=== PATIENT | female | born 1945 | race Caucasian/White ===

== ENCOUNTER 2018-12-31 07:01 | Inpatient (IN) ==
[2018-12-26 14:03] LABS: Appearance,Urine CLEAR; Bilirubin,Urine NEG (NEG); Color,Urine YELLOW; Glucose,Urine (UA) NEGATIVE (NEG); Leukocyte Esterase,Urine NEG /uL (NEG); Protein,Urine NEG (NEG); Specific Gravity,Urine 1.005 (1.000-1.035); Urine Blood NEG mg/dL (<0.03); Urobilinogen,Urine NEG (NEG)
[2018-12-26 16:29] LABS: Blood Urea Nitrogen 14 mg/dl (8-23)
[2018-12-26 16:58] LABS: Basophils # (Auto) 0 K/mcL (0.0-0.3); Basophils % (Auto) 0.5 % (0.0-2.0); Eosinophils # (Auto) 0.2 K/mcL (0.0-0.7); Eosinophils % (Auto) 2.1 % (0.0-7.0); Granulocytes % (Auto) 70.4 % (38.0-78.0); Lymphocytes # (Auto) 1.5 K/mcL (1.5-4.8); Lymphocytes % (Auto) 18.8 % (15.5-49.0); Mean Cell Volume 91.1 fL (80.0-100.0); Mean Corpuscular HGB Conc 32.9 g/dL (31.0-36.0); Monocytes # (Auto) 0.7 K/mcL (0.1-0.9); Monocytes % (Auto) 8.2 % (1.0-12.0); Platelet Count 221 K/mcL (140-440); RBC 5.22 M/mcL (4.00-5.20); Red Cell Distribution Width 14.2 % (11.5-14.5)
[~2018-12-31 07:01] MED LIST: 0.9 % SODIUM CHLORIDE 9 ML, KETOROLAC 30 MG, ROPIVACAINE HCL/PF 49.5 ML, EPINEPHrine 0.... IJ SCH; CELECOXIB 200 MG CAPSULE PO SCH; PREGABALIN 75 MG CAPSULE PO SCH; ceFAZolin 2 GM in DEXTROSE 5% IN WATER 50 ML IV SCH
[2018-12-31] MEDS ORDERED: ROPIVACAINE HCL/PF 20 ML VIAL IJ ONE (09:30)
[2018-12-31] MEDS ORDERED: PHENYLEPHRINE 10 MG/ML VIAL IV ONE (09:30)
[2018-12-31] MEDS ORDERED: KETOROLAC 15 MG/ML VIAL IV ONE (09:30)
[2018-12-31] MEDS ORDERED: DEXAMETHASONE 10 MG/ML VIAL IV ONE (09:30)
[2018-12-31] MEDS ORDERED: MIDAZOLAM 5 MG/5 ML VIAL IV ONE (09:30)
[2018-12-31] MEDS ORDERED: LIDOCAINE HCL/PF 100 MG/5 ML SYRINGE IV ONE (09:30)
[2018-12-31] MEDS ORDERED: PROPOFOL 200 MG/20 ML VIAL IV ONE (09:30)
[2018-12-31] MEDS ORDERED: ONDANSETRON 4 MG/2 ML VIAL IV ONE (09:30)
[2018-12-31] MEDS ORDERED: ePHEDrine 50 MG/ML AMPUL IV ONE (09:30)
[2018-12-31] MEDS ORDERED: TRANEXAMIC ACID 1,000 MG/10 ML VIAL IV ONE ×2 (09:30→10:56)
[2018-12-31] MEDS ORDERED: GENTAMICIN SULFATE 800 MG/20 ML VIAL IR ONE (09:51)
[2018-12-31] MEDS ORDERED: FAMOTIDINE 20 MG TABLET PO PRN (10:55)
--- NOTE | 2018-12-31 10:55 | Brief Operative Note ---
Date of procedure: 12/31/18 Pre-op diagnosis: right knee osteoarthritis Post-op diagnosis: same Procedure: right tka Grafts/Implants: Yes Anesthesia: spinal Complications: none Surgeon: Gene Thorpe Band Maker: Louise Hyatt Estimated blood loss (cc): 150 Tourniquet Time (Minutes): 63 Specimens Removed/Pathology: none sent Condition: stable Disposition: PACU
[2018-12-31] MEDS ORDERED: FLEETS ADULT ENEMA PR PRN (10:56)
[2018-12-31] MEDS ORDERED: ONDANSETRON 4 MG/2 ML VIAL IV PRN ×2 (10:56→10:58)
[2018-12-31] MEDS ORDERED: POLYETHYLENE GLYCOL 3350 17 GM PACKET PO PRN (10:56)
[2018-12-31] MEDS ORDERED: ONDANSETRON 4 MG ODT TABLET SL PRN (10:56)
[2018-12-31] MEDS ORDERED: BISACODYL 10 MG SUPP.RECT PR PRN (10:56)
[2018-12-31] MEDS ORDERED: MAGNESIUM HYDROXIDE 30 ML ORAL.SUSP PO PRN (10:56)
[2018-12-31] MEDS ORDERED: BENZOCAINE/MENTHOL 1 LOZENGE PO PRN (10:56)
[2018-12-31] MEDS ORDERED: ACETAMINOPHEN 1,000 MG/100 ML BOTTLE IV ONE ×2 (10:58→12:00)
[2018-12-31] MEDS ORDERED: LACTATED RINGERS 250 ML IV PRN (10:58)
[2018-12-31] MEDS ORDERED: PROMETHAZINE 25 MG/ML VIAL IV PRN (10:58)
[2018-12-31] MEDS ORDERED: MEPERIDINE 25 MG/ML SYRINGE IV PRN (10:58)
[2018-12-31] MEDS ORDERED: IPRATROPIUM/ALBUTEROL 3 ML AMPUL.NEB NEB PRN (10:58)
[2018-12-31] MEDS ORDERED: fentaNYL 100 MCG/2 ML VIAL IV PRN (10:58)
[2018-12-31] MEDS ORDERED: diphenhydrAMINE 50 MG/ML VIAL IV PRN (10:58)
[2018-12-31] MEDS ORDERED: NALOXONE HCL 0.4 MG/ML VIAL IV PRN (10:58)
[2018-12-31] MEDS ORDERED: FLUMAZENIL 0.1 MG/ML ML IV PRN (10:58)
[2018-12-31] MEDS ORDERED: LACTATED RINGERS 1,000 ML IV SCH (11:00)
--- NOTE | 2018-12-31 11:59 | XRay Report ---
CLINICAL INFORMATION: Postsurgical follow-up TECHNIQUE: AP and crosstable lateral right knee COMPARISON: None. FINDINGS: Status post right total knee arthroplasty. Anatomic alignment demonstrated. There is postsurgical soft tissue and intra-articular gas IMPRESSION: Status post right total knee arthroplasty Interpreted and Authenticated by: Gene Tanner 12/31/18
[2018-12-31] MEDS: KETOROLAC 15 MG/ML VIAL IV SCH ×2 (12:22→17:14)
[2018-12-31] MEDS: 0.9 % SODIUM CHLORIDE 1,000 ML IV SCH ×2 (12:26→23:13)
--- NOTE | 2018-12-31 12:39 | Operative Note ---
DATE OF OPERATION: 12/31/2018 PREOPERATIVE DIAGNOSIS: Degenerative joint disease, right knee. POSTOPERATIVE DIAGNOSIS: Degenerative joint disease, right knee. PROCEDURE PERFORMED: Right total knee arthroplasty. SURGEON: Moises Thorpe M.D. EXTENSION CLERK SURGEON: Louise Hyatt PA-C. ANESTHESIA: Spinal with LMA assist. ESTIMATED BLOOD LOSS: 150 mL. COMPLICATIONS: None noted. SPECIMENS REMOVED: None. DRAINS: None. TOURNIQUET TIME: 64 minutes at 300 mmHg. IMPLANTS: DePuy Attune femoral posterior stabilized size 6, right, narrow; DePuy Attune tibial insert fixed bearing posterior stabilized size 6, 5 mm AOX; DePuy Attune tibial base fixed bearing size 5, cemented; DePuy Attune patella medialized dome 41 mm cemented AOX. INDICATIONS: The patient has had a long-standing history of worsening pain in the knee that has failed conservative treatment. Radiographs have confirmed advanced degenerative joint disease. After a long discussion about treatment options, the patient elected to proceed with a knee arthroplasty. The risks and benefits were discussed with the patient in detail including, but not limited to, the risks of anesthesia, problems with the heart or lungs related to anesthesia, infection, compromise or injury to the nerves and blood vessels, deep venous thrombosis, pulmonary embolism, pneumonia, continued pain after surgery, worsening pain or symptoms after surgery, swelling, loss of motion, instability, leg length discrepancy, and need for repeat surgery. DESCRIPTION OF PROCEDURE: The patient was seen in the pre-anesthesia waiting room where all questions were answered and the correct side and site were identified and marked. The patient was transferred to the operating room and administered the anesthetic and given pre-operative antibiotics. A time-out was then called. The extremity was prepped and draped, exsanguinated, and the tourniquet was inflated to 300 mmHg. A midline skin incision was then made with a standard medial parapatellar arthrotomy. Debridement of the menisci, ACL, and PCL was performed followed by balancing releases in the medial lateral plane. We then established intramedullary access to both the femur and tibia in a standard fashion. The femoral guide axel was initially placed with the distal femoral guide, pinned into place, and the distal femoral cut was performed and checked with a flat plate. We then turned our attention to the tibia. The intramedullary guide was placed with the proximal tibial cutting block. The block was appropriately positioned off the affected side, varus and valgus was checked with the extra-medullary guide, and the block was pinned into place. The proximal tibial cut was performed and the tibia was prepared for the tibial implant with appropriate rotation. The tibia, femur, and posterior compartment were debrided of osteophytes, loose bodies, and meniscal fragments We then used the gap balancing technique to balance extension with the first two cuts and good balancing was obtained with a 10 millimeter gap block. We turned our attention back to the femur and used the referencing block and implant to size appropriately. Using the gap balancing technique for the flexion space we set our rotation of the femur off the tibial cut. Anesthesia gave the patient 1 gram of Tranexamic Acid via an intravenous route. We placed the 4 in 1 cutting block and made anterior, posterior, and chamfer cuts. Box plasty cuts were then made in a standard fashion for the posterior stabilized prosthesis. We then completed osteophyte release and posterior capsule release from the posterior compartment. Trials were placed and we chose the polyethylene insert thickness that provided the best stability in all planes. With the trials in place, we did a measured resection for a resurfacing patella. We sized the patella and placed the patella trial and performed a lateral facetectomy with the saw and rongeur. Good tracking was obtained. We removed all trials, irrigated and dried all cut surfaces. We cemented the components into place including tibia, femur and patella. We placed a trial liner and held the knee in full extension with the patella compressed while the cement cured. We then removed all excess cement and placed the final polyethylene tibiofemoral component. Irrigation with 3 liters of antibiotic saline was then performed using jet-lavage. We let the tourniquet down and coagulated bleeding vessels. We injected a 100 cubic centimeter volume including Ropivacaine 49.25 cubic centimeters at 5 milligrams per cubic centimeter, Ketorolac 30 milligrams, and Epinephrine 0.5 milligrams into 100 cubic centimeters volume of normal saline. We placed closed the retinaculum with #2 Stratafix and 0 Vicryl. We closed the subcutaneous tissue and skin in layers out to Dermabond on the skin. A sterile pressure dressing was applied. All needle and sponge counts were correct. The patient was transferred to the recovery room in stable condition. STEPHEN:aleksandra Job ID: [id number] Doc ID: [id number] Moises Thorpe MD
[2018-12-31] MEDS: HYDROcodone/APAP 10/325MG TABLET PO PRN ×4 (14:00→22:49)
[2018-12-31] MEDS: 0.9 % SODIUM CHLORIDE 10 ML SYRINGE IV SCH ×2 (14:00→22:51)
[2018-12-31] MEDS: METHOCARBAMOL 750 MG TABLET PO PRN ×2 (15:43→21:43)
[2018-12-31] MEDS: ceFAZolin 1 GM VIAL IV SCH (17:14)
[2018-12-31] MEDS: ASPIRIN 325 MG ENTERIC COATED TABLET PO SCH (21:40)
[2018-12-31] MEDS: DOCUSATE SODIUM 100 MG CAPSULE PO SCH (21:40)
[2018-12-31] MEDS: SENNOSIDES 1 TABLET PO SCH (21:40)
[2019-01-01] MEDS: KETOROLAC 15 MG/ML VIAL IV SCH ×5 (00:22→23:32)
[2019-01-01] MEDS: ceFAZolin 1 GM VIAL IV SCH (00:22)
[2019-01-01] MEDS: HYDROcodone/APAP 10/325MG TABLET PO PRN ×3 (02:29→20:44)
[2019-01-01] MEDS: METHOCARBAMOL 750 MG TABLET PO PRN ×2 (03:24→10:09)
[2019-01-01] MEDS: 0.9 % SODIUM CHLORIDE 10 ML SYRINGE IV SCH ×3 (05:26→22:32)
--- NOTE | 2019-01-01 06:58 | Orthopedic Progress Note ---
Subjective Patient information: Note initiated : 01/01/19 at 6:56 am Service Date, if different from initiated Date: [] Patient: Nanette Botello 73 y/o F admitted on 12/31/18 for Right Total Knee Arthroplasty. Chief Complaint: [] Interval history: doing well. painful Objective Vital signs: Vital Signs Temp Pulse Pulse Resp BP Pulse Ox 01/01/19 03:26 98.0 F 72 16 127/69 94 01/01/19 00:46 98 F 83 12 112/58 94 12/31/18 20:00 97.7 F 93 H 18 117/59 94 12/31/18 13:43 86 139/76 98 12/31/18 13:13 85 125/64 97 12/31/18 12:58 83 122/65 97 12/31/18 12:43 86 118/65 94 12/31/18 12:28 83 117/67 95 12/31/18 12:13 85 120/69 95 12/31/18 12:00 82 16 99 12/31/18 11:55 97.1 F 82 15 120/55 99 12/31/18 11:40 97.2 F 86 19 96/55 98 12/31/18 11:35 97.2 F 84 17 114/54 95 12/31/18 11:30 91 H 17 121/48 100 12/31/18 11:25 87 90 15 123/47 98 12/31/18 11:20 97.4 F 90 11 L 118/53 98 12/31/18 07:01 98.1 F 80 16 138/86 96 Intake and Output 12/31/18 01/01/19 01/01/19 21:59 05:59 13:59 Intake Total 1600 1800 Output Total 1101 350 Balance 499 1450 Intake: IV 1000 Oral 1600 800 Output: Void Amount 1100 350 # of times incontinent of urine 1 Other: Urine Appearance Clear Clear Urine Color Light Whit Light Whit Urine Odor Normal Weight 244 lb 8 oz Intake & Output: Intake & Output 12/31/18 01/01/19 01/01/19 21:59 05:59 13:59 Intake Total 1600 1800 Output Total 1101 350 Balance 499 1450 Weight 244 lb 8 oz Intake: IV 1000 Oral 1600 800 Output: Void Amount 1100 350 # of times incontinent of urine 1 Other: Urine Appearance Clear Clear Urine Color Light Whit Light Whit Urine Odor Normal Incision: Yes healing Incision clean and dry: Yes Dressing: Yes clean, Yes dry, Yes intact Weight bearing status: full Neurological exam IM: Yes abnormal gait, Yes alert, Yes oriented X3, Yes motor sensory intact, Yes neurovascular intact Extremities exam IM: No calf tenderness, Yes Foot pink and warm, Yes neurovascular intact - Labs CBC & BMP: 01/01/19 04:34 12/26/18 13:00 Labs: Orthopedic Labs 12/26/18 13:00 PT 13.0 INR 1.0 01/01/19 12/26/18 04:34 13:00 Hgb 13.4 15.7 H Hct 40.2 47.6 Assessment and Plan (1) Knee osteoarthritis pod 1 s/p tka wbat pain control dvt prophylaxis d/c planning Status: Acute
--- NOTE | 2019-01-01 06:58 | Discharge Summary ---
Ortho Discharge - TKA - Patient Instructions Diet: Regular Diet Activity: activity as tolerated, ambulate with assistive device, weight bearing as tolerated Total Knee Protocol: For Total Knee: Start ROM AMANDA with stationary bike or rocking chair. Work on gaining full extension of knee. Posterior dislocation precautions provided. Hip abductor strengthening and gait training instructions provided. Apply Cryocuff as instructed. Dressing Care: May shower in 2 days - Problem Maintenance (1) Knee osteoarthritis Status: Acute - Follow Up Plan Follow Up Appointments: Louise Hyatt PA-C [Physician Vice Principal] - 01/15/19 9:40 am Disposition: Home, Self-Care Prognosis: Good Rehab Potential: Good I certify that the patient requires SNF services: No Overall status at discharge: patient is progressing back to baseline
[2019-01-01] MEDS: LEVOTHYROXINE 100 MCG TABLET PO SCH (07:14)
[2019-01-01] MEDS: LIOTHYRONINE 5 MCG TABLET PO SCH (08:11)
[2019-01-01] MEDS: ASPIRIN 325 MG ENTERIC COATED TABLET PO SCH ×2 (08:11→20:43)
[2019-01-01] MEDS: DOCUSATE SODIUM 100 MG CAPSULE PO SCH ×2 (08:11→20:43)
[2019-01-01] MEDS: SELENIUM 100 MCG PO SCH (08:12)
[2019-01-01] MEDS: METHYLSULFONYLMETHANE PO SCH (08:12)
[2019-01-01] MEDS: 0.9 % SODIUM CHLORIDE 1,000 ML IV SCH ×2 (15:53→23:32)
[2019-01-01] MEDS: METHOCARBAMOL 1,000 MG/10 ML VIAL IV PRN ×2 (15:53→22:31)
[2019-01-01] MEDS: SENNOSIDES 1 TABLET PO SCH (20:43)
[2019-01-02] MEDS: HYDROcodone/APAP 10/325MG TABLET PO PRN ×2 (02:57→07:53)
[2019-01-02] MEDS: METHOCARBAMOL 1,000 MG/10 ML VIAL IV PRN (04:47)
[2019-01-02] MEDS: KETOROLAC 15 MG/ML VIAL IV SCH (05:34)
[2019-01-02] MEDS: 0.9 % SODIUM CHLORIDE 10 ML SYRINGE IV SCH (05:34)
--- NOTE | 2019-01-02 07:11 | Orthopedic Progress Note ---
Orthopedics - Auxillary Note - Subjective Patient Information: Note initiated : 01/02/19 at 7:10 am Service Date, if different from initiated Date: [] Patient: Nanette Botello 73 y/o F admitted on 12/31/18 for Right Total Knee Arthroplasty. Chief Complaint: Mild knee pain bandages c/d/i nvi-distal Vital Signs Temp Pulse Resp BP Pulse Ox 01/02/19 03:03 98.3 F 84 18 103/53 98 01/01/19 23:27 98.3 F 79 16 104/52 96 01/01/19 18:51 98.3 F 79 16 118/63 97 01/01/19 16:00 97.0 F 65 16 113/70 97 01/01/19 12:00 73 16 109/63 98 01/01/19 08:00 96.7 F L 68 16 108/66 98 Intake and Output 01/01/19 01/02/19 01/02/19 21:59 05:59 13:59 Intake Total 1400 Output Total 850 1075 Balance -850 325 Intake: IV 1000 Sodium Chloride 0.9% 1,000 ml @ 1000 125 mls/hr IV .Q8H [facility] Rx#: [id number] Oral 400 Output: Void Amount 850 1075 Other: Urine Appearance Clear Clear Urine Color Light Whit Straw Urine Odor Strong Normal Weight 245 lb 4 oz Laboratory Results - last 24 hr 01/02/19 04:13 Hgb 11.0 L Hct 32.9 L s/p R TKA-stable mobilize with PT. Discharge to home today
[2019-01-02] MEDS: LEVOTHYROXINE 100 MCG TABLET PO SCH (07:48)
[2019-01-02] MEDS: DOCUSATE SODIUM 100 MG CAPSULE PO SCH (09:22)
[2019-01-02] MEDS: ASPIRIN 325 MG ENTERIC COATED TABLET PO SCH (09:22)
[2019-01-02] MEDS: LIOTHYRONINE 5 MCG TABLET PO SCH (09:23)
[2019-01-02] MEDS: METHYLSULFONYLMETHANE PO SCH (09:23)
[2019-01-02] MEDS: SELENIUM 100 MCG PO SCH (09:23)
[2019-01-02] MEDS: 0.9 % SODIUM CHLORIDE 1,000 ML IV SCH (10:08)
== END 2019-01-02 12:50 | disposition home or self-care (01) | DRG 470 ==
LOC: MEDSUR 07:01
PROVIDERS: ADMIT Orthopaedic Surgery Sports Medicine; ATTEND Orthopaedic Surgery Sports Medicine